=== PATIENT | female | born 1985 | race American Indian/Alaskan Native ===

== ENCOUNTER 2018-02-26 21:23 | Emergency (ER) | payer BC ==
[~2018-02-26] VITALS: Ht 160 cm; Wt 77.1 kg
[2018-02-26] MEDS ORDERED: CLARITIN10 M1 PO (21:30)
[2018-02-26] MEDS ORDERED: FLONASE AL50 MCG/ACT (21:30)
[2018-02-26] MEDS ORDERED: NAPROSYN250 MG PO (21:31)
[2018-02-26 21:33] VITALS: BP 148/98; TEMP 98.5
== END 2018-02-26 23:09 | disposition home or self-care (01) ==
LOC: ED 21:23
DX: S00.83XA Contusion of other part of head, initial encounter (principal); S60.221A Contusion of right hand, initial encounter; S50.12XA Contusion of left forearm, initial encounter; W01.0XXA Fall on same level from slipping, tripping and stumbling without subsequent striking against object, initial encounter; Y93.02 Activity, running
CPT/HCPCS: 99282